=== PATIENT | male | born 1980 | race Two or more races ===

== ENCOUNTER 2019-05-30 06:15 | Day surgery (SDC) | payer OTHER ==
[~2019-05-30 06:15] MED LIST: COZAAR100 MG; TOPROL XL25 MG; ZYRTEC10 M3
== END 2019-05-30 16:15 | disposition home or self-care (01) ==
LOC: CIR.AMB 06:15
DX: D12.9 Benign neoplasm of anus and anal canal (principal)

== ENCOUNTER 2021-01-05 12:56 | Outpatient (CLI) | payer OTHER | END 2021-01-05 13:05 | disposition home or self-care (01) | LOC: MRI 12:56 | DX: M54.5 Low back pain (principal) | CPT/HCPCS: 72148 ==

== ENCOUNTER → 2021-01-16 | Outpatient (CLI) | payer OTHER | END | disposition home or self-care (01) | LOC: MRI 11:16 | DX: M54.2 Cervicalgia (principal) | CPT/HCPCS: 72141 ==

== ENCOUNTER 2023-10-05 10:09 | Day surgery (SDC) | payer OTHER ==
[~2023-10-05] VITALS: Ht 170.2 cm; Wt 86.2 kg
[~2023-10-05 10:09] MED LIST changes: +MOTRIN IB200 MG PO; +TEMAZEPAM7.5 MG PO
[2023-10-05] MEDS ORDERED: METRONIDAZOLE/SODIUM CHLORIDE 500 MG/100 ML PIGGYBACK IV ONE (11:11)
[2023-10-05] MEDS ORDERED: CEFTRIAXONE SODIUM 2,000 MG VIAL ONE (11:12)
[2023-10-05] MEDS ORDERED: HEMOSTATIC MATRIX 1 KIT KIT TOP ONE ×2 (12:04→12:45)
[2023-10-05] MEDS ORDERED: DIBUCAINE 15 GM OINT..GM. TUBE ONE (12:04)
[2023-10-05] MEDS ORDERED: POVIDONE-IODINE 118 ML BOTT TOP ONE ×2 (12:04→12:45)
[2023-10-05] MEDS ORDERED: CHLORHEXIDINE GLUCONATE 120 ML BOTTLE TOP ONE ×2 (12:14→13:00)
[2023-10-05] MEDS ORDERED: METRONIDAZOLE/SODIUM CHLORIDE 500 MG/100 ML PIGGYBACK IV SCH (12:45)
[2023-10-05] MEDS ORDERED: CEFTRIAXONE SODIUM 2,000 MG VIAL IV SCH (12:45)
[2023-10-05] MEDS ORDERED: DIBUCAINE 15 GM OINT..GM. TUBE RECTAL ONE (12:45)
== END 2023-10-05 17:50 | disposition home or self-care (01) ==
LOC: CIR.AMB 10:09
PROVIDERS: ATTEND Colon & Rectal Surgery
DX: D12.8 Benign neoplasm of rectum (principal); D12.9 Benign neoplasm of anus and anal canal; I10 Essential (primary) hypertension; Z91.013 Allergy to seafood

== ENCOUNTER 2023-10-10 08:54 | Emergency (ER) | payer OTHER ==
[~2023-10-10] VITALS: Ht 170.2 cm; Wt 86.2 kg
[2023-10-10] MEDS ORDERED: FAMOTIDINE/PF 20 MG in 0.9 % SODIUM CHLORIDE 8 ML IV PUSH STA (09:49)
[2023-10-10] MEDS ORDERED: KETOROLAC TROMETHAMINE 30 MG VIAL IV ONE (10:00)
[2023-10-10] MEDS ORDERED: 0.9 % SODIUM CHLORIDE 1,000 ML IV SCH (10:00)
[2023-10-10 10:33] LABS: HEMATOCRIT 45.5 % (39.0-48.0); HEMOGLOBIN 15.8 g/dL (13-16.00); MEAN CELL VOLUME 99.7 fL (80.0-100.00); MEAN CORPUSCULAR HEMOGLOBIN 34.6 pg (27.00-32.0); MEAN CORPUSCULAR HGB CONC 34.7 g/dl (32.0-36.0); PLATELET COUNT 217 K/uL (150-450); RED BLOOD COUNT 4.56 M/uL (4.00-6.00)
[2023-10-10 11:16] LABS: ALBUMIN 4.2 gm/dL (3.4-5.0); BILIRUBIN TOTAL 0.67 mg/dL (0.3-1.2); CALCIUM 9.2 mg/dL (8.5-10.1); CREATININE SERUM 1.12 mg/dL (0.70-1.30); GFR 70.9; GLOBULINA 3.7 G/DL (2.4-3.5); POTASSIUM 4.04 mEq/L (3.5-5.1); TOTAL PROTEIN 7.9 gm/dL (6.4-8.2)
[2023-10-10] MEDS ORDERED: CARAFATE1 GM PO (11:27)
[2023-10-10] MEDS ORDERED: PEPCID AC20 MG PO (11:27)
[2023-10-10] MEDS ORDERED: SUCRALFATE 1 G TABLET PO ONE (11:30)
[2023-10-10] MEDS ORDERED: MAG HYDROX/ALUMINUM HYD/SIMETH 30 ML BLIST.PACK PO ONE (11:30)
== END 2023-10-10 11:37 | disposition home or self-care (01) ==
LOC: ER 08:54
PROVIDERS: General Practice
DX: R10.13 Epigastric pain (principal)
CPT/HCPCS: 36415; 96365; 96366; 99283; J1885; J3490; J7030